=== PATIENT | female | born 1995 | race Caucasian/White ===

== ENCOUNTER 2020-11-07 23:58 | Emergency (ER) | payer MEDICAID ==
[~2020-11-07] VITALS: Ht 170.2 cm; Wt 89.0 kg
[2020-11-08] MEDS ORDERED: TRAMADOL 50MG TABLET PO ONE (01:00)
[2020-11-08] MEDS ORDERED: ACETAMINOPHEN 325MG TABLET PO ONE (01:00)
[2020-11-08] MEDS ORDERED: IBUP-2029 MT (03:58)
[2020-11-08 05:00] VITALS: BP 117/74
== END 2020-11-08 05:02 | disposition home or self-care (01) ==
LOC: ER 23:58
DX: S06.899A Other specified intracranial injury with loss of consciousness of unspecified duration, initial encounter (principal); S16.1XXA Strain of muscle, fascia and tendon at neck level, initial encounter; R11.10 Vomiting, unspecified; Y04.2XXA Assault by strike against or bumped into by another person, initial encounter; Y93.89 Activity, other specified; Y92.89 Other specified places as the place of occurrence of the external cause
CPT/HCPCS: 81025; 99285